=== PATIENT | female | born 2000 | race American Indian/Alaskan Native ===

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

== ENCOUNTER 2020-08-14 11:57 | Outpatient (CLI) | payer OTHER | END 2020-08-14 19:02 | disposition home or self-care (01) | LOC: RAD 11:57 | PROVIDERS: ATTEND Nurse Practitioner Family | DX: Z03.89 Encounter for observation for other suspected diseases and conditions ruled out (principal) ==

== ENCOUNTER 2020-09-17 08:37 | Outpatient (CLI) | payer OTHER | END 2020-09-17 19:34 | disposition home or self-care (01) | LOC: RAD 08:37 | PROVIDERS: ATTEND Family Medicine | DX: U07.1 COVID-19 (principal) ==

== ENCOUNTER 2020-10-04 10:21 | Outpatient (CLI) | payer OTHER | END 2020-10-04 22:42 | disposition home or self-care (01) | LOC: CT 10:21 | PROVIDERS: ATTEND Nurse Practitioner Primary Care | DX: G43.009 Migraine without aura, not intractable, without status migrainosus (principal) ==

== ENCOUNTER 2021-01-06 12:18 | Outpatient (CLI) | payer OTHER | END 2021-01-06 23:19 | disposition home or self-care (01) | LOC: US 12:18 | PROVIDERS: ATTEND Nurse Practitioner Family | DX: Z30.431 Encounter for routine checking of intrauterine contraceptive device (principal) ==

== ENCOUNTER 2021-04-21 13:02 | Outpatient (CLI) | payer OTHER | END 2021-04-21 20:19 | disposition home or self-care (01) | LOC: LABW 13:02 | PROVIDERS: ATTEND Nurse Practitioner Family | DX: J02.9 Acute pharyngitis, unspecified (principal) | CPT/HCPCS: 87651 ==

== ENCOUNTER 2021-08-17 15:20 | Outpatient (CLI) | payer OTHER ==
[2021-08-17 15:57] LABS: PLATELET COUNT 273 K/uL (152-353)
== END 2021-08-17 19:47 | disposition home or self-care (01) ==
LOC: LABW 15:20
PROVIDERS: ATTEND Nurse Practitioner Family
DX: D64.9 Anemia, unspecified (principal)
CPT/HCPCS: 36415; 85027

== ENCOUNTER 2021-11-04 11:25 | Outpatient (CLI) | payer OTHER | END 2021-11-04 21:45 | disposition home or self-care (01) | LOC: US 11:25 | PROVIDERS: ATTEND Nurse Practitioner Family | DX: R10.31 Right lower quadrant pain (principal) ==

== ENCOUNTER 2022-01-10 13:25 | Outpatient (CLI) | payer OTHER | END 2022-01-10 19:05 | disposition home or self-care (01) | LOC: RAD 13:25 | PROVIDERS: ATTEND Nurse Practitioner Family | DX: S13.4XXA Sprain of ligaments of cervical spine, initial encounter (principal); Y92.9 Unspecified place or not applicable ==

== ENCOUNTER 2022-01-17 07:54 | Outpatient (CLI) | payer OTHER | END 2022-01-17 19:26 | disposition home or self-care (01) | LOC: CT 07:54 | PROVIDERS: ATTEND Nurse Practitioner Family | DX: S13.4XXA Sprain of ligaments of cervical spine, initial encounter (principal); Y92.9 Unspecified place or not applicable ==

== ENCOUNTER 2022-02-11 14:47 | Outpatient (CLI) | payer OTHER ==
[2022-02-11 15:04] LABS: PLATELET COUNT 310 K/uL (152-353)
[2022-02-11 16:38] LABS: POTASSIUM 4.1 mmol/L (3.6-5.2); SODIUM 139 mmol/L (136-145)
== END 2022-02-11 21:03 | disposition home or self-care (01) ==
LOC: LABW 14:47
PROVIDERS: ATTEND Dermatology
DX: Z79.899 Other long term (current) drug therapy (principal)
CPT/HCPCS: 36415; 80053; 84478; 84702; 85027

== ENCOUNTER 2022-03-14 15:46 | Outpatient (CLI) | payer OTHER ==
[2022-03-14 16:20] LABS: PLATELET COUNT 292 K/uL (152-353)
[2022-03-14 16:44] LABS: POTASSIUM 4.1 mmol/L (3.6-5.2); SODIUM 134 mmol/L (136-145)
== END 2022-03-14 18:59 | disposition home or self-care (01) ==
LOC: LABW 15:46
PROVIDERS: ATTEND Dermatology
DX: Z79.899 Other long term (current) drug therapy (principal)
CPT/HCPCS: 36415; 80053; 84478; 84702; 85027

== ENCOUNTER 2022-04-13 11:19 | Outpatient (CLI) | payer OTHER | END 2022-04-13 21:22 | disposition home or self-care (01) | LOC: LABW 11:19 | PROVIDERS: ATTEND Nurse Practitioner Family | DX: L70.0 Acne vulgaris (principal); L81.0 Postinflammatory hyperpigmentation; L85.3 Xerosis cutis; K13.0 Diseases of lips; R04.0 Epistaxis; Z79.899 Other long term (current) drug therapy | CPT/HCPCS: 81025 ==

== ENCOUNTER 2022-06-26 14:07 | Outpatient (CLI) | payer OTHER | END 2022-06-26 19:36 | disposition home or self-care (01) | LOC: LABW 14:07 | PROVIDERS: ATTEND Nurse Practitioner Family | DX: L70.0 Acne vulgaris (principal); L81.0 Postinflammatory hyperpigmentation; R04.0 Epistaxis; K13.0 Diseases of lips; L85.3 Xerosis cutis; Z79.899 Other long term (current) drug therapy | CPT/HCPCS: 81025 ==

== ENCOUNTER 2022-07-06 09:34 | Outpatient (CLI) | payer OTHER | END 2022-07-06 19:50 | disposition home or self-care (01) | LOC: LABW 09:34 | PROVIDERS: ATTEND Nurse Practitioner Family | DX: Z32.00 Encounter for pregnancy test, result unknown (principal) | CPT/HCPCS: 36415; 84702 ==

== ENCOUNTER 2022-07-07 12:55 | Outpatient (CLI) | payer OTHER | END 2022-07-07 20:35 | disposition home or self-care (01) | LOC: US 12:55 | PROVIDERS: ATTEND Nurse Practitioner Family | DX: E02 Subclinical iodine-deficiency hypothyroidism (principal) ==